=== PATIENT | female | born 1990 | race Caucasian/White ===

== ENCOUNTER 2016-09-10 15:53 | Inpatient (IN) | payer OTHER ==
[~2016-09-10] VITALS: Ht 172.7 cm; Wt 72.0 kg
--- NOTE | ~2016-09-10 | FD ---
ADMIT: 09/10/2016 RM/LOC: 517 [facility] MR#: [id number] [address] [address] CHARANJIT VITA [address] [address] Final Diagnosis SEX: F AGE: 26 : 1990 ADMISSION DATE: 09/10/2016 DISCHARGE DATE: 09/11/2016 FINAL DIAGNOSES: 1. Diabetic ketoacidosis. 2. Dehydration. 3. Nausea and vomiting secondary to diabetic ketoacidosis. 4. Hyponatremia. 5. Type 1 diabetes mellitus. Rene Robertson MD/ luanne JOB #: [id number] CC: Rene Robertson MD, Attending Physician Renata Bethea MD, Family Physician
[~2016-09-10 15:53] MED LIST: HUMALOG100 UNIT/1 SQ; LEVEMIR100 UNIT/1 SQ; SILVADENE20 GM TP
--- NOTE | 2016-09-13 13:18 | ER ---
ADMIT: 09/10/2016 RM/LOC: ER [facility] MR#: [id number] [address] [address] VITA DONOHUE [address] [place] [address] Emergency Room Report SEX: F AGE: 26 : 1990 DATE: 09/10/2016 TIME: 1553 hours. Please refer to my T-sheet for complete H and P. Briefly, the patient is a 26-year-old who comes in with vomiting and ran out of her insulin. She has been admitted to the hospital for it, but she has never had severe DKA. She just feels weak, tired, and very nauseous. PHYSICAL EXAMINATION: VITAL SIGNS: Her blood pressure is 136/91, pulse 100, respirations 12, temp 97.5, and sat 100%. GENERAL: No acute distress. HEENT: Very dry mucous membranes. LUNGS: Clear. HEART: Regular but tachy. ABDOMEN: Soft. SKIN: No rash. EMERGENCY DEPARTMENT COURSE: We gave her a liter of normal saline bolus, Zofran 4 IV, NovoLog 13 units subcu which is what she would take for a sliding scale. Her pH serum came back 7.157. Chemistries are normal except sodium 129, CO2 of 15, and glucose 425. was negative. Urine was negative except greater than 1000 glucose, 4+ ketones. She was feeling better but not excellent. At this point, I talked to Dr. Robertson, he will admit to the hospital. ASSESSMENT: 1. Nausea, vomiting. 2. Early and mild diabetic ketoacidosis. 3. Med noncompliance as she ran out. PLAN: Admit to the hospital for hydration. Collin Paredes MD/ melissa JOB #: [id number] CC: Collin Paredes MD, Attending Physician
--- NOTE | 2016-10-07 11:41 | HP ---
ADMIT: 09/10/2016 RM/LOC: 517 [facility] MR#: [id number] [address] [address] VITA DONOHUE [address] [place] [address] History and Physical SEX: F AGE: 26 : 1990 DATE OF SERVICE: CHIEF COMPLAINT: Nausea, vomiting, and elevated blood sugar. HISTORY OF PRESENT ILLNESS: Vita is a very pleasant 26-year-old white female, who presented to the emergency room with a 3-day history of not feeling well. She has felt tired, run down, developed nausea, vomiting. Unfortunately, there was a mixup with her insulin. She could get a refill because her insurance company had changed formularies and because of that, she ultimately ran out of insulin. She did have 7 units of NovoLog left this morning. She administered that but felt more poorly, so ultimately ended up coming into the emergency room where she was found to be in mild DKA; therefore, she is being admitted for further workup and hospitalization. PAST MEDICAL HISTORY: Remarkable for diabetes mellitus type 1 and has been diagnosed for last four years. MEDICATIONS: 1. Only medication includes Levemir 24 units at bedtime. 2. Also has had NovoLog, which she uses as a sliding scale. She does not know exactly what she normally does for the sliding scale, but probably gives in the nature of 25 units per 24-hour period. She does not take any other medications. ALLERGIES: NO KNOWN ALLERGIES. SOCIAL HISTORY: She does occasionally drink alcohol. Does not smoke. Works at [email or web address], and [email or web address] during the races. FAMILY HISTORY: Mother and father in good health. REVIEW OF SYSTEMS: GENERAL: No fevers or chills. HEENT: No headaches, blurry vision, or double vision. CARDIAC: No chest pains. PULMONARY: No shortness of breath. GI: As per HPI. : No dysuria, urgency, or frequency. ENDOCRINE: She has had some polyuria and polydipsia. PSYCH: No depression. INTEGUMENTARY: No new rashes. PHYSICAL EXAMINATION: VITAL SIGNS: Blood pressure is 136/91, pulse 107, respirations 20, temp is 97.5. GENERAL: She is in no acute distress. She is alert, oriented. Very appropriate. HEENT: Pupils are reactive. Conjunctivae are clear. NECK: Soft and supple. LUNGS: Clear to auscultation with normal respiratory effort. HEART: Regular rate and rhythm without murmur. ADMIT: 09/10/2016 RM/LOC: 517 [facility] MR#: [id number] [address] [place] [id number] [facility] [place] [address] History and Physical SEX: F AGE: 26 : 1990 ABDOMEN: Soft, it is nontender. EXTREMITIES: No cyanosis. No clubbing. No edema. LABORATORY AND X-RAY DATA: Urine test is negative. White count is 13,300, hemoglobin 13.6, platelets 429,000. UA shows 4+ ketones, greater than 1000 glucose, pH was 7.157. Sodium 129, potassium 3.9, chloride 95, CO2 of 15, BUN 18, creatinine 1.1, glucose 425, calcium 9.2, moderate serum ketones. ASSESSMENT: 1. Diabetic ketoacidosis. 2. Dehydration. 3. Nausea and vomiting. 4. Hyponatremia. PLAN: She is in very mild DKA. We will not start insulin drip as her sugar is already down to 195 after receiving 13 units of NovoLog in the ER. So, we are just going to hydrate her and watch her electrolytes, and recheck lab frequently and get her insulin called out for her prior to discharge. Rene Robertson MD/ melissa JOB #: [id number] CC: Rene Robertson, Attending Physician Renata Bethea, Family Physician
== END 2016-09-11 17:31 | disposition home or self-care (01) | DRG 638 ==
LOC: ER 15:53 → 5MS 17:30
PROVIDERS: ADMIT Family Medicine
DX: E10.10 Type 1 diabetes mellitus with ketoacidosis without coma (principal); E87.1 Hypo-osmolality and hyponatremia; E86.0 Dehydration

== ENCOUNTER 2016-11-20 12:20 | Emergency (ER) | payer OTHER ==
--- NOTE | 2016-11-23 12:41 | ER ---
ADMIT: 11/20/2016 RM/LOC: ER [facility] MR#: [id number] [address] [address] VITA DONOHUE [address] [place] [id number] Emergency Room Report SEX: F AGE: 26 : 1990 DATE: 11/20/2016 ADDENDUM: This is a 26-year-old white female with known type 1 insulin- dependent diabetes. Coming in because just not feeling well overall. Her hemoglobin A1c runs about 8. Her white count is 5.9. Potassium is little borderline at 3.9. She is not . She got 2 L of fluid while she was here. Her carbon dioxide was down a bit at 15. I think she is not DKA but she borders on just running a bit too high. Better with her fluid. We got her set up for insulin and then also with staff educator and then she is to follow up with her doctor in a week. CONDITION ON DISCHARGE: Improved. Yayo Ellis MD/ modl JOB #: [id number] CC: Yayo Ellis MD, Attending Physician Renata Bethea MD, Family Physician
== END 2016-11-20 16:18 | disposition home or self-care (01) ==
LOC: ER 12:20
DX: E10.9 Type 1 diabetes mellitus without complications (principal); E86.0 Dehydration; E86.1 Hypovolemia; Z79.4 Long term (current) use of insulin